=== PATIENT | female | born 1960 | race Two or more races ===

== ENCOUNTER 2021-12-05 14:09 | Emergency (ER) | payer MEDICAID ==
[~2021-12-05] VITALS: Ht 149.9 cm; Wt 74.8 kg
[~2021-12-05 14:09] MED LIST: ACET120S27; TRAM50TA2
[2021-12-05] MEDS ORDERED: ONDANSETRON ODT 4 MG TAB PO ONE (15:00)
[2021-12-05 15:34] LABS: Basophils # (auto) 0.2 10 ^3/uL (0-0.2); Basophils % (auto) 3.3 % (0.0-2.0); Eosinophils # (auto) 0 10 ^3/uL (0-0.8); Eosinophils % (auto) 0.1 % (0.0-7.0); Hematocrit 38.9 % (36.0-46.0); Hemoglobin 13.6 g/dL (12.2-16.2); Lymphocytes # (auto) 1.5 10 ^3/uL (0.4-5.4); Lymphocytes % (auto) 31.2 % (10.0-50.0); Mean Corpuscular Hemoglobin 31.1 pg (28.0-32.0); Mean Corpuscular Volume 88.8 fL (80.0-100.0); Monocytes # (auto) 0.3 10 ^3/uL (0-1.3); Monocytes % (auto) 5.7 % (0.0-12.0); Neutrophils # (auto) 2.9 10 ^3/uL (1.6-8.6); Neutrophils % (auto) 59.7 % (37.0-80.0); Nucleated Red Blood Cells % 0.1 %; Red Blood Cells 4.38 10^6/uL (4.0-5.20); Red Cell Distribution Width 14.5 % (11.8-14.3); White Blood Cell 4.9 10^3/uL (4.4-10.8)
[2021-12-05 15:42] LABS: Albumin 3.6 g/dL (3.4-5.0); BUN/Creatinine Ratio 27.9; Potassium 4.1 mmol/L (3.5-5.1)
[2021-12-05 15:45] LABS: Bilirubin, Total 0.6 mg/dL (0.2-1.0); Total Protein 6.5 g/dL (6.4-8.2)
[2021-12-05 17:01] VITALS: BP 153/69
[2021-12-05] MEDS ORDERED: ONDA-144 PO (17:05)
== END 2021-12-05 17:13 | disposition home or self-care (01) ==
LOC: ER 14:09
DX: G44.209 Tension-type headache, unspecified, not intractable (principal); I16.0 Hypertensive urgency; Z79.899 Other long term (current) drug therapy
CPT/HCPCS: 36415; 70450; 80053; 85025; 93005; 99285; Q0162

== ENCOUNTER 2024-08-02 12:44 | Emergency (ER) | payer MEDICAID ==
[~2024-08-02] VITALS: Ht 149.9 cm; Wt 71.8 kg
[~2024-08-02 12:44] MED LIST changes: +ONDA-144 PO
--- NOTE | 2024-08-02 12:59 | ED.PDOC ---
Musculoskeletal HPI Comments HPI: Poor Historian. 64-year-old female presents to emergency department for evaluation of right posterior knee fossa pain for one-week worse with walking better with rest. She has full range of motion of the joints. Denies any fall or trauma or twisting. Patient is neurovascularly intact in the affected extremity. Patient has Stevenson at home. Vitals: respiratory rate of 19, SpO2 of 98%RA, pulse rate of 73, and a blood pressure of 145/75 PMHx: arthritis, HTN, HLD PSHx: R knee debridement Sx REVIEW OF SYSTEMS: CONSTITUTIONAL: Denies acute: fever, diaphoresis, chills, generalized weakness. HEAD: Denies acute: headache, photophobia Eyes: Denies acute: Double vision, vision loss, eye pain, eye discharge. EARS: Denies acute: tinnitus, hearing loss, ear discharge, ear pain, THROAT: Denies acute: sore throat, swelling, difficulty swallowing , pain with swallowing, change in voice. NECK: Denies acute: neck pain, neck swelling, stiff neck. HEART: Denies acute : chest pain, palpitations, LUNGS: Denies acute: SOB, wheezing, cough, hemoptysis ABDOMEN: Denies acute: abdominal pain, Nausea, Vomiting, diarrhea, melena , hematemesis, hematochezia SKIN: Denies acute: rash, redness, lesions, itchiness. EXTREMITIES: Denies acute: calf pain, numbness, tingling, weakness, Denies acute: Low back pain. Neuro: Denies acute: focal neurological deficit, motor or sensory focal neurological deficit, tremors, seizure like activity, confusion, dizziness, change in mental status, loss of bowel or bladder function, cauda equina like symptoms. : Denies acute: dysuria, hematuria, flank pain, increase in urinary frequency. PSYCH: Denies acute: hallucination, suicidal ideation, homicidal ideation. FEMALE: Denies acute: abnormal vaginal bleeding, foul odor, unusual discharge. PHYSICAL EXAM: General: no acute distress, awake and alert. Head: normocephalic, atraumatic. Neck: supple, trachea is midline, no swelling. Throat: Normal phonation. Eyes:, no erythema, no purulent discharge, no proptosis, no icterus. Heart: regular rate, regular rhythm, no significant murmur appreciated. Lungs: no apparent respiratory distress, Able to speak in full sentences. No wheezing, no rhonchi, no crackles. No stridors Clear to auscultation bilaterally. Abdomen: non tender to palpation, non distended, soft, no guarding, no rebound, + bowel sounds. Neuro: Awake, Alert, oriented to name, self, situation, follows commands GCS=15. Speech is normal. Skin: no petechia, no purpura, no cyanosis, non-pale, not jaundice. Lower extremities: --no - Pitting edema no deformity, no focal swelling, no calf TTP. Evaluation of the right posterior knee where she points where her pain is. She has a focal point of tenderness to palpation in the posterior fossa of the right knee. No swelling or palpable masses. Patient is neurovascularly intact in the affected extremity. Patient able to flex and extend bilateral knees and hips without any pain. She only gets pain when she walks. Makes eye contact. moves all four extremities. Face: no apparent facial droop. Pedal pulses are palpable. Time Seen by MD: 12:55 Primary Care Provider: YARELIS Reviewed Notes: Nurses Notes, Medications, Allergies Allergies: Coded Allergies: NO KNOWN ALLERGIES (Unverified , 03/12/10) Home Meds Active Scripts Ondansetron (Zofran) 4 Mg Tab, 1 TAB PO Q6HR, #20 TAB Prov:VLADISLAV GRAYSON MD 12/05/21 Reported Medications Acetaminophen (Tylenol) 120 Mg Rc 03/12/10 Tramadol Hcl (Tramadol Hcl) 50 Mg Tab 03/12/10 Information Source: Patient Was a procedure done? Was a procedure done?: No Differential Diagnosis EXT Differential Diagnosis: Cellulitis, Deep Vein Thrombosis, Compartment Syndrome, Fracture, Sprain, Dislocation, Gout, DJD, Contusion, Strain, Septic, Neurovascular injury, Arthritis, Bursitis X-Ray, Labs, Meds, VS Vital Signs Date Time Temp Pulse Resp B/P (MAP) Pulse Ox O2 Delivery O2 Flow Rate FiO2 08/02/24 20:03 98.0 63 16 140/68 (92) 100 98.0 08/02/24 20:00 63 15 100 Room Air* 0 21 21 08/02/24 13:04 98.9 73 19 145/75 (98) 98 Lab Test 08/02/24 13:20 Range/Units White Blood Count 7.4 4.4-10.8 10^3/uL Red Blood Count 4.17 4.0-5.20 10^6/uL Hemoglobin 13.1 12.2-16.2 g/dL Hematocrit 37.4 36.0-46.0 % Mean Corpuscular Volume 89.7 80.0-100.0 fL Mean Corpuscular Hemoglobin 31.3 28.0-32.0 pg Mean Corpuscular Hemoglobin Concent 34.9 32.0-36.0 g/dL Red Cell Distribution Width 13.4 11.8-14.3 % Platelet Count 212 140-450 10^3/uL Mean Platelet Volume 9.6 6.9-10.8 fL Neutrophils (%) (Auto) 66.7 37.0-80.0 % Lymphocytes (%) (Auto) 26.7 10.0-50.0 % Monocytes (%) (Auto) 6.1 0.0-12.0 % Eosinophils (%) (Auto) 0.3 0.0-7.0 % Basophils (%) (Auto) 0.2 0.0-2.0 % Neutrophils # (Auto) 4.9 1.6-8.6 10 ^3/uL Lymphocytes # (Auto) 2.0 0.4-5.4 10 ^3/uL Monocytes # (Auto) 0.4 0-1.3 10 ^3/uL Eosinophils # (Auto) 0 0-0.8 10 ^3/uL Basophils # (Auto) 0 0-0.2 10 ^3/uL Nucleated Red Blood Cells 0.1 % Erythrocyte Sedimentation Rate 22 H 0-20 mm/hr Sodium Level 142 136-145 mmol/L Potassium Level 4.0 3.5-5.1 mmol/L Chloride Level 107 98-107 mmol/L Carbon Dioxide Level 29 20-31 mmol/L Anion Gap 6 5-15 Blood Urea Nitrogen 16 9-23 mg/dL Creatinine 0.62 0.550-1.02 mg/dL Glomerular Filtration Rate Calc 101 >90 mL/min BUN/Creatinine Ratio 25.8 H 10.0-20.0 Serum Glucose 124 H 74-106 mg/dL Calcium Level 9.9 8.7-10.4 mg/dL C-Reactive Protein High Sensitivity 0.57 <1.0 mg/dL [facility] [id number] [facility] [address] Ph: [phone] DIAGNOSTIC IMAGING Diagnostic Imaging Report : [id number] Signed PATIENT: KIYA CEVALLOS ACCT: [id number] UNIT: [id number] : 1960 LOC: ER ROOM / BED: / AGE / SEX: 64 / F ADM STATUS: REG ER SERVICE 1303 ORDERING PHYSICIAN: ZORAIDA JACK DO PROCEDURE(s): RLDVT - RT Lower DVT REASON: posterior Knee pain ORDER NUMBER(s): [id number], ACCESSION NUMBER(s): [id number] Right lower extremity venous duplex Clinical History: posterior Knee pain Comparison: None Technique: Duplex Doppler evaluation of the deep venous system of the right lower extremity from the common femoral vein to the popliteal vein including color Doppler and spectral/pulsed waveform analysis was performed. Findings: The common femoral vein demonstrates appropriate compressibility and waveform variability . There is compressibility/patency of the great saphenous vein at the proximal thigh . The femoral vein demonstrates appropriate compressibility and waveform variability . The deep femoral vein demonstrates appropriate compressibility and waveform variability . The popliteal vein demonstrates appropriate compressibility and waveform variability . There is normal compressibility at the tibioperoneal trunk. Impression: No right femoropopliteal venous thrombosis. ATED BY: KEN LINARES MD DICTATED DATE/TIME: 08/02/241405 SIGNED BY: KEN LINARES MD SIGNED DATE/TIME: 08/02/24 140 CC: [place] [id number] Ph: [phone] DIAGNOSTIC IMAGING Diagnostic Imaging Report : [id number] Signed PATIENT: KIYA CEVALLOS ACCT: [id number] UNIT: [id number] : 1960 LOC: ER ROOM / BED: / AGE / SEX: 64 / F ADM STATUS: REG ER SERVICE 1607 ORDERING PHYSICIAN: ZORAIDA JACK DO PROCEDURE(s): RKN3 - R KNEE 3V XRAY REASON: posterior knee pain ORDER NUMBER(s): [id number], ACCESSION NUMBER(s): [id number] CLINICAL INDICATION: posterior knee pain TECHNIQUE: XY R KNEE 3V XRAY Comparison: None FINDINGS/IMPRESSION: : There is no evidence of acute fracture or dislocation. Moderate tricompartmental degenerative changes. 1.3 cm loose body in the lateral joint space. ATED BY: KEN LINARES MD DICTATED DATE/TIME: 08/02/241640 SIGNED BY: KEN LINARES MD SIGNED DATE/TIME: 08/02/241640 CC: Time of 1ST Reevaluation: 12:55 Reevaluation 1ST: Unchanged Patient Education/Counseling: Diagnosis, Treatment Family Education/Counseling: Diagnosis, Treatment Comments Patient presented with the above HPI.---right knee pain nontraumatic---workup was initiated. patient was found with the above mentioned diagnosis. Patient ED course and VS have been stabilized. Patient has been reassessed in the ED and remained in a stable condition. Pertinent incidental findings were discussed with the patient and/or family. Patient/family voices understanding and is agreeable with plan. Patient has been observed in the ED adequate length of time to insure improvement/stability. patient was discharged home in a stable condition. All the reports of any imaging studies that were ordered by myself were reviewed by myself. Departure 1 Departure Time of Disposition: 19:07 Impression: Primary Impression: Right knee pain Disposition: 01 HOME / SELF CARE / HOMELESS Condition: Stable Additional Instructions: Additional discharge instructions: You MUST follow-up with your primary care/family doctor in 1 to 2 days. If you are unable to see your primary care/family doctor, please return to our emergency room for re-assessment and re-evaluation in 1 to 2 days. Return to the emergency room here in our facility or to the nearest ER [facility] if your symptoms change or worsen. CONSULTATIONS: you MUST Follow-up for consultation as soon as possible with: -orthopedic surgery in 1-2 days. Please call for appointment. You MUST call the consultants office yourself to make an appointment. You may need to arrange that through your insurance and/or your primary/family doctor. If you are unable to see the economic consultant in 1 to 2 days, you must return to our emergency room (or any other ER of your choice) for re-assessment and re- evaluation. Adequate fluid hydration. Ambulate and weight-bearing as tolerated. Below is a copy of your radiological report for follow up: [place] [id number] Ph: [phone] DIAGNOSTIC IMAGING Diagnostic Imaging Report : [id number] Signed PATIENT: KIYA CEVALLOS ACCT: [id number] UNIT: [id number] : 1960 LOC: ER ROOM / BED: / AGE / SEX: 64 / F ADM STATUS: REG ER SERVICE 1607 ORDERING PHYSICIAN: ZORAIDA JACK DO PROCEDURE(s): RKN3 - R KNEE 3V XRAY REASON: posterior knee pain ORDER NUMBER(s): [id number], ACCESSION NUMBER(s): [id number] CLINICAL INDICATION: posterior knee pain TECHNIQUE: XY R KNEE 3V XRAY Comparison: None FINDINGS/IMPRESSION: : There is no evidence of acute fracture or dislocation. Moderate tricompartmental degenerative changes. 1.3 cm loose body in the lateral joint space. ATED BY: KEN LINARES MD DICTATED DATE/TIME: 08/02/241640 SIGNED BY: KEN LINARES MD SIGNED DATE/TIME: 08/02/24 164 CC: [place] [id number] Ph: [phone] DIAGNOSTIC IMAGING Diagnostic Imaging Report : [id number] Signed PATIENT: KIYA CEVALLOS ACCT: [id number] UNIT: [id number] : 1960 LOC: ER ROOM / BED: / AGE / SEX: 64 / F ADM STATUS: REG ER SERVICE 1303 ORDERING PHYSICIAN: ZORAIDA JACK DO PROCEDURE(s): RLDVT - RT Lower DVT REASON: posterior Knee pain ORDER NUMBER(s): [id number], ACCESSION NUMBER(s): [id number] Right lower extremity venous duplex Clinical History: posterior Knee pain Comparison: None Technique: Duplex Doppler evaluation of the deep venous system of the right lower extremity from the common femoral vein to the popliteal vein including color Doppler and spectral/pulsed waveform analysis was performed. Findings: The common femoral vein demonstrates appropriate compressibility and waveform variability . There is compressibility/patency of the great saphenous vein at the proximal thigh . The femoral vein demonstrates appropriate compressibility and waveform variability . The deep femoral vein demonstrates appropriate compressibility and waveform variability . The popliteal vein demonstrates appropriate compressibility and waveform variability . There is normal compressibility at the tibioperoneal trunk. Impression: No right femoropopliteal venous thrombosis. ATED BY: KEN LINARES MD DICTATED DATE/TIME: 08/02/24 1406 SIGNED BY: KEN LINARES MD SIGNED DATE/TIME: 08/02/24 140 CC: Discharged With: Self, Relative Critical Care Note Critical Care Time?: No I personally scribed for ZORAIDA JACK DO ([email or web address]) on 08/02/24 at 12:59. Electronically submitted by David Menchaca ([email or web address]). I personally scribed for ZORAIDA JACK DO ([email or web address]) on 08/02/24 at 14:07. Electronically submitted by David Menchaca ([email or web address]). I personally scribed for ZORAIDA JACK DO ([email or web address]) on 08/02/24 at 14:10. Electronically submitted by David Menchaca ([email or web address]). I personally scribed for ZORAIDA JACK DO ([email or web address]) on 08/02/24 at 19:05. Electronically submitted by David Menchaca ([email or web address]). ZORAIDA JACK DO Aug 02, 2024 12:59
[2024-08-02 13:40] LABS: Basophils # (auto) 0 10 ^3/uL (0-0.2); Basophils % (auto) 0.2 % (0.0-2.0); Eosinophils # (auto) 0 10 ^3/uL (0-0.8); Eosinophils % (auto) 0.3 % (0.0-7.0); Hematocrit 37.4 % (36.0-46.0); Hemoglobin 13.1 g/dL (12.2-16.2); Lymphocytes % (auto) 26.7 % (10.0-50.0); Mean Corpuscular Hemoglobin 31.3 pg (28.0-32.0); Mean Corpuscular Hgb Conc. 34.9 g/dL (32.0-36.0); Mean Corpuscular Volume 89.7 fL (80.0-100.0); Monocytes # (auto) 0.4 10 ^3/uL (0-1.3); Monocytes % (auto) 6.1 % (0.0-12.0); Neutrophils # (auto) 4.9 10 ^3/uL (1.6-8.6); Neutrophils % (auto) 66.7 % (37.0-80.0); Nucleated Red Blood Cells % 0.1 %; Platelet Count (auto) 212 10^3/uL (140-450); Red Blood Cells 4.17 10^6/uL (4.0-5.20); Red Cell Distribution Width 13.4 % (11.8-14.3); White Blood Cell 7.4 10^3/uL (4.4-10.8)
[2024-08-02 14:00] LABS: Anion Gap 6 (5-15); Carbon Dioxide 29 mmol/L (20-31); Chloride 107 mmol/L (98-107); Sodium 142 mmol/L (136-145)
[2024-08-02 14:01] LABS: Calcium 9.9 mg/dL (8.7-10.4)
[2024-08-02 14:06] LABS: BUN/Creatinine Ratio 25.8 (10.0-20.0); Blood Urea Nitrogen 16 mg/dL (9-23); Glucose 124 mg/dL (74-106)
[2024-08-02 14:07] LABS: CRP High Sensitivity 0.57 mg/dL (<1.0)
--- NOTE | 2024-08-02 14:08 | DVH ---
Right lower extremity venous duplex Clinical History: posterior Knee pain Comparison: None Technique: Duplex Doppler evaluation of the deep venous system of the right lower extremity from the common femo ral vein to the popliteal vein including color Doppler and spectral/pulsed waveform analysis was perf ormed. Findings: The common femoral vein demonstrates appropriate compressibility and waveform variability . There is compressibility/patency of the great saphenous vein at the proximal thigh . The femoral vein demonstrates appropriate compressibility and waveform variability . The deep femoral vein demonstrates appropriate compressibility and waveform variability . The popliteal vein demonstrates appropriate compressibility and waveform variability . There is normal compressibility at the tibioperoneal trunk. Impression: No right femoropopliteal venous thrombosis.
[2024-08-02 14:17] LABS: Erythrocyte Sedimentation Rate 22 mm/hr (0-20)
--- NOTE | 2024-08-02 16:44 | DVH ---
CLINICAL INDICATION: posterior knee pain TECHNIQUE: XY R KNEE 3V XRAY Comparison: None FINDINGS/IMPRESSION: : There is no evidence of acute fracture or dislocation. Moderate tricompartmental degenerative changes. 1.3 cm loose body in the lateral joint space.
[2024-08-02 20:00] VITALS: PULSE 63; RESP 15; O2SAT 100
[2024-08-02 20:03] VITALS: BP 140/68; PULSE 63; RESP 16; TEMP 98; O2SAT 100
== END 2024-08-02 20:26 | disposition home or self-care (01) ==
LOC: ER 12:44
DX: M25.561 Pain in right knee (principal); I10 Essential (primary) hypertension; E78.5 Hyperlipidemia, unspecified; M17.11 Unilateral primary osteoarthritis, right knee; Z98.890 Other specified postprocedural states; Z79.899 Other long term (current) drug therapy
CPT/HCPCS: 36415; 73562; 80048; 85025; 85652; 86141; 93971